=== PATIENT | male | born 1970 | race Caucasian/White ===

== ENCOUNTER 2017-09-15 15:32 | Emergency (ER) | payer BC, OTHER ==
--- NOTE | 2017-09-15 15:49 | CPEKG ---
Heart Rate: 98 RR Interval: 612 P-R Interval: 160 QRSD Interval: 84 QT Interval: 336 QTC Interval: 430 P [place]: 30 QRS [place]: 7 T Wave [place]: 25 EKG Severity - ABNORMAL ECG - EKG Impression: SINUS RHYTHM EKG Impression: ST ELEVATION SUGGESTS PERICARDITIS Electronically Signed By: Elba Espinosa 15-Sep-2017 23:18:11
[2017-09-15 15:51] LABS: PLATELET COUNT 320 10^3/uL (150-400)
--- NOTE | 2017-09-15 15:52 | EDPHY ---
H & P Time Seen by Provider: 09/15/17 15:51 HPI/ROS: CHIEF COMPLAINT: Generalized achiness, fatigue HISTORY OF PRESENT ILLNESS: 47-year-old male presents with generalized achiness and fatigue. 10 days ago he was in [place] and developed nausea and abdominal cramping. The symptoms gradually got better and he was feeling fairly well a couple of days ago. However, he has continued to be fatigued. Yesterday, he had several episodes of diarrhea. No diarrhea today. Today, he took his dog for a walk, but needed to turn around because of generalized weakness and fatigue. When he arrived home at 10am, he developed severe generalized achiness, especially in his chest and legs. The chest achiness has persisted for several hours. The cp increases with deep inspiration, no change with exertion. He continues to have chest and back achiness, as well as achiness in his lower extremities. He has felt chilled, no documented fever. No meds tried. REVIEW OF SYSTEMS: Eyes: No visual changes ENT: No sore throat Respiratory: No cough, no shortness of breath Gastrointestinal: No nausea, no vomiting, no abdominal pain Genitourinary: no dysuria Musculoskeletal: No swelling Skin: No rash Neurological: No headache Psychiatric: No depression Past Medical/Surgical History: Denies Social History: Smoking Status: Former smoker Physical Exam: General Appearance: Alert, pleasant, appears uncomfortable Eyes: Pupils equal and round, no conjunctival pallor or injection ENT, Mouth: Mucous membranes moist Neck: Normal inspection Respiratory: Tenderness over the entire anterior chest wall as well as the upper back, lungs are clear to auscultation Cardiovascular: Regular rate and rhythm, no murmur, gallop or rub Gastrointestinal: Abdomen is soft and nontender Neurological: A&O, nonfocal, normal gait Skin: Warm and dry, no rash Extremities: Normal inspection, diffuse muscular tenderness of the lower extremities, no swelling Psychiatric: Mood and affect normal Constitutional: Initial Vital Signs Temperature (C) 36.5 C 09/15/17 15:34 Heart Rate 104 H 09/15/17 15:34 Respiratory Rate 18 09/15/17 15:34 Blood Pressure 121/70 H 09/15/17 15:34 O2 Sat (%) 98 09/15/17 15:34 O2 Delivery Mode Room Air Allergies/Adverse Reactions: No Known Allergies Allergy (Unverified 09/15/17 15:33) Home Medications: Medication Instructions Recorded Amphet Asp and D/Amphet [Adderall 10 mg PO 09/15/17 10 MG (*)] Colchicine [Colchicine (*)] 0.6 mg PO BID #60 tab 09/15/17 Levothyroxine [Synthroid 100 mcg 100 mcg PO DAILY06 09/15/17 (*)] Medical Decision Making - Diagnostics EKG Interpretation: EKG interpreted by me reveals normal sinus rhythm, rate 98, ST segment elevation in the anterolateral leads, less than 1 mm. Interpretation: abnormal EKG Repeat EKG interpreted by me: unchanged Imaging Results: Chest X-Ray 09/15/17 16:34 Impression: Normal. Imaging: I viewed and interpreted images myself ED Course/Re-evaluation: This non-toxic appearing patient presents with multiple symptoms, suggestive of a prolonged viral syndrome, now worsening. Most concerning is the pleuritic chest pain. EKG reveals slight ST segment elevation in the anterolateral leads , consistent with pericarditis. No old EKG for comparison. Chest pain is somewhat pleuritic and could be secondary to pericarditis. IV normal saline 1 L and Toradol 15 mg IV given. Echocardiogram read by Dr. Tommy Goddard is normal. Chest x-ray independently reviewed by me is also normal. Labs/studies reviewed with pt. Obs in the emergency department; he remained stable and gradually felt better. 1845-He feels much better after IV fluids and Toradol (and a nap). Requests a 2nd L of IV fluids prior to discharge, as he has not felt urge to urinate yet. IV normal saline 2nd liter given. Troponin x 2 negative; clinically I doubt ACS , given infectious sx; no evidence of myocarditis. Will rx for pericarditis with colchicine and ibuprofen. F/u cardiology. Differential Diagnosis: includes though not limited to, and in no particular order, ACS, influenza, pneumonia, myocarditis, pericardial effusion - Data Points Laboratory Results: Laboratory Results 09/15/17 15:45 09/15/17 15:45 Medications Given: Discontinued Medications Colchicine (Colchicine) 0.6 mg PO EDNOW ONE Stop: 09/15/17 18:48 Last Admin: 09/15/17 19:05 Dose: 0.6 mg Sodium Chloride (Ns) 1,000 mls @ 0 mls/hr IV EDNOW ONE; Wide Open PRN Reason: Protocol Stop: 09/15/17 16:35 Last Admin: 09/15/17 16:42 Dose: 1,000 mls Sodium Chloride (Ns) 1,000 mls @ 0 mls/hr IV ONCE ONE; Wide Open PRN Reason: Protocol Stop: 09/15/17 19:02 Last Admin: 09/15/17 19:05 Dose: 1,000 mls Ketorolac Tromethamine (Toradol) 15 mg IVP EDNOW ONE Stop: 09/15/17 16:36 Last Admin: 09/15/17 16:43 Dose: 15 mg Departure - Departure Disposition: Home, Routine, Self-Care Clinical Impression: Viral syndrome Pericarditis Qualifiers: Pericarditis type: infectious Infectious pericarditis etiology: viral Chronicity: acute Qualified Code(s): I30.1 - Infective pericarditis Condition: Good Instructions: Colchicine (By mouth), Acute Pericarditis (ED), Viral Syndrome ( ED) Additional Instructions: Ibuprofen 600 mg 3 times daily while the pain persists. Take colchicine as prescribed. Return for worsening symptoms or any concerns. Referrals: Tommy Goddard MD [Medical Doctor] - As per Instructions (Call to make an appointment.) Frederick Izaguirre MD [Primary Care Provider] - 2-3 days, call for appt. Prescriptions: Colchicine [Colchicine (*)] 0.6 mg PO BID #60 tab
[2017-09-15] MEDS ORDERED: NS 1,000 ML IV ONE ×2 (16:34→19:01)
[2017-09-15] MEDS ORDERED: KETOROLAC 15 MG/1 ML SDV IVP ONE (16:35)
--- NOTE | 2017-09-15 18:06 | ECHO ---
[email or web address] [address] [address] Main: [phone] Fax: [email or web address] Echocardiogram Name: TRAY COPE MR#: [id number] Study Date: 09/15/2017 Study Time: 05:29 PM Date of : 1970 Age: 47 year(s) Height: ( ) Weight: ( ) BSA: Gender: Male Examination: Echo Indication: Chest Pain, ekg c/w pericarditis Image Quality: Adequate Contrast: Requested by: Elba Espinosa BP: / Heart Rate: Rhythm: Indication: Chest Pain, ekg c/w pericarditis Procedure Staff Ad Copy Writer: Layla Akers [facility] Reading Physician: Tommy Goddard MD Requesting Provider: Conclusions: Normal study Measurements: Chambers Valvular Assessment AV/MV Valvular Assessment TV/PV Normal Normal Normal Name Value Range Name Value Range Name Value Range Ao Alpa (MM): 2.9 cm (2.2 cm-3.7 AV Vmax: 1.86 m/s (1 m/s-1.7 TR Vmax: 2.52 mm/s ( - ) cm) m/s) TR PGmax: 25 mmHg ( - ) IVSd (2D): 1.0 cm (0.6 cm-1.1 AV maxP mmHg ( - ) syst. PAP: 30 mmHg ( - ) cm) LVOT Vmax: 1.19 m/s (0.7 m/s-1.1 PV Vmax: 1.07 m/s (0.6 m/s-0.9 LVDd (2D): 4.6 cm (4.2 cm-5.9 m/s) m/s) cm) MV E Vmax: 0.81 m/s ( - ) PV PGmax: 5 mmHg ( - ) LVDs (2D): 3.0 cm (2.1 cm-4 MV A Vmax: 0.54 m/s ( - ) cm) MV E/A: 1.50 ( - ) LVPWd (2D): 1.0 cm (0.6 cm-1 cm) LVEF (BP): 71 % (>=55 %) RVDd(2D): 3.7 cm (1.9 cm-3.8 cmmm) Continued Measurements: Chambers Valvular Assessment AV/MV Valvular Assessment TV/PV Name Value Name Value Name Value LADs: 3.4 cm MV DecTime: 222 m/s CVP (est.): 5 mmHg LADs Lon.1 cm MV E/E' Septal: 9.00 LA Area: 15.0 cm2 MV E/E' Lateral: 8.00 LA Volume: 43 ml TAPSE: 1.6 cm RA Area: 16.0 cm2 Patient: TRAY COPE Study Date: 09/15/2017 Page 1 of 2 05:29 PM Findings: Left Ventricle: Normal size left ventricle. No LV hypertrophy. Normal global systolic LV function. EF is 71 %. No regional wall motion abnormality. Normal diastolic LV function. Right Ventricle: Normal size right ventricle. Left Atrium: The left atrium is normal in size. Right Atrium: The right atrium is normal in size. Mitral Valve: The mitral valve is normal in appearance and function. There is no mitral valve regurgitation. No mitral stenosis is present. Aortic Valve: The aortic valve is normal in appearance and function. Trivial aortic valve regurgitation. No aortic valve stenosis is present. Tricuspid Valve: The tricuspid valve is normal in appearance and function. Trivial to mild tricuspid valve regurgitation. The pulmonary artery pressure is normal. Right ventricular systolic pressure measures 30mmHg. Pulmonic Valve: The pulmonic valve is normal in appearance and function. There is no pulmonic regurgitation seen. Aorta: The aorta is normal. Normal size aortic root measuring 2.9 cm. Pericardium: No pericardial effusion. (No Signature Object) Patient: TRAY COPE Study Date: 09/15/2017 Page 2 of 2 05:29 PM [id number]
[2017-09-15] MEDS ORDERED: COLCHICINE 0.6 MG CAP/TAB PO ONE (18:47)
--- NOTE | 2017-09-15 19:28 | CPEKG ---
Heart Rate: 84 RR Interval: 714 P-R Interval: 164 QRSD Interval: 80 QT Interval: 368 QTC Interval: 436 P [place]: 27 QRS [place]: 2 T Wave [place]: 22 EKG Severity - ABNORMAL ECG - EKG Impression: SINUS RHYTHM EKG Impression: ST ELEVATION SUGGESTS PERICARDITIS Electronically Signed By: Elba Espinosa 15-Sep-2017 23:18:03
[2017-09-15 20:06] VITALS: BP 137/76
== END 2017-09-15 20:05 | disposition home or self-care (01) ==
DX: I30.1 Infective pericarditis (principal); B34.9 Viral infection, unspecified; E86.9 Volume depletion, unspecified; Z87.891 Personal history of nicotine dependence
CPT/HCPCS: 96374; J1885